=== PATIENT | female | born 1980 | race Caucasian/White ===

== ENCOUNTER 2024-05-21 10:34 | Emergency (ER) | payer OTHER ==
[~2024-05-21] VITALS: Ht 165.1 cm; Wt 113.4 kg
[~2024-05-21 10:34] MED LIST: NKHM; PNV-TOTAL1 SGL PO
[2024-05-21] MEDS ORDERED: ACETAMINOPHEN 325 MG TAB PO ONE (11:20)
[2024-05-21 12:01] LABS: BILIRUBIN Negative (Negative); BLOOD Negative (Negative); CLARITY Cloudy (Clear); COLOR Yellow (Yellow); GLUCOSE Negative (Negative); KETONE Negative (Negative); LEUKO ESTERASE Negative (Negative); NITRITE Negative (Negative); PH 7.5 (4.5-8.0); SPECIFIC GRAVITY 1.015 (1.001-1.030); UROBILINOGEN 0.2 E.U./dl (0.0-1.0)
[2024-05-21 12:11] LABS: BACTERIA 2+; EPITHELIAL CELLS TNTC
== END 2024-05-21 13:22 | disposition home or self-care (01) ==
LOC: ED 10:34
PROVIDERS: Physician Assistant Medical
DX: O98.512 Other viral diseases complicating pregnancy, second trimester (principal); U07.1 COVID-19; G43.909 Migraine, unspecified, not intractable, without status migrainosus; Z3A.17 17 weeks gestation of pregnancy; Z91.048 Other nonmedicinal substance allergy status; Z91.040 Latex allergy status; Z98.890 Other specified postprocedural states; Z79.899 Other long term (current) drug therapy